=== PATIENT | female | born 1990 | race American Indian/Alaskan Native ===

== ENCOUNTER 2017-05-10 22:24 | Emergency (ER) | payer MEDICAID, OTHER ==
[2017-05-10 23:40] VITALS: BMI 32.5
[2017-05-10 23:55] LABS: SQUAMOUS EPITHIAL 7 /hpf (0-5); URINE BACTERIA RARE (<OCC); URINE BILIRUBIN NEGATIVE (NEGATIVE); URINE BLOOD SMALL (NEGATIVE); URINE CLARITY CLOUDY (Clear); URINE COLOR YELLOW (YELLOW); URINE GLUCOSE (UA) NEG (Normal); URINE LEUKOCYTE ESTERASE SMALL Leu/uL (Negative); URINE NITRATE NEGATIVE (NEGATIVE); URINE PROTEIN 30 mg/dL (NEGATIVE); URINE UROBILINOGEN 0.2-1.0 mg/dL (0.2-1.0)
[2017-05-11 04:37] VITALS: BP 113/71; PULSE 103; RESP 18; TEMP 98.8
--- NOTE | 2017-05-12 15:17 | OBHP ---
Datetime: 05/10/2017 23:43 IP Adm Impression: , intrauterine IP Admit Plan: Observation/Evaluation Admit Comment, IP Provider: 26yo edc 06/11 presents w/ c/o light vag bleeding since yesterday . states she told she was 4cm . denies srom. c/o pelvic pressure. 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 pmhx:denies shx: denies etoh,drugs or tobacco pshx: tonsillectomy obhx: [id number] medic: pnv; valtrex; benedryl prn i: vag spotting p: ua observe addendum: 1 DC home Follow-up with [facility] in 3 days Urine culture Increase water intake Pelvic Type - PN: Adequate Extremities - PN: Normal Abdomen - PN: Normal Back - PN: Normal Lungs - PN: Normal Heart - PN: Normal Neurologic - PN: Normal HEENT - PN: Normal General - PN: Normal Membranes, Provider: Intact Comments, ACOG Physical Exam: SSE: no blood in vault no genital/perineal lesions EGA AdmitDate IP: 35.3 Vital Signs Provider: Reviewed (Annotations: Data stored by CPN on behalf of user) IP Chief Complaint: Other Dilatation, Provider: 1 Effacement, Provider: 0 Station, Provider: -4 Genitourinary Exam: Normal
== END 2017-05-11 00:15 | disposition home or self-care (01) ==
LOC: H.EROB2 22:24
DX: O26.853 Spotting complicating pregnancy, third trimester (principal); O26.93 Pregnancy related conditions, unspecified, third trimester; R10.2 Pelvic and perineal pain; Z3A.35 35 weeks gestation of pregnancy

== ENCOUNTER 2017-06-04 00:23 | Emergency (ER) | payer MEDICAID ==
[2017-06-04 06:10] VITALS: BP 127/80; PULSE 101; O2SAT 99
--- NOTE | 2017-06-04 08:52 | OBHP ---
Datetime: 06/04/2017 01:09 IP Adm Impression: Term, intrauterine ; No Active Labor; Intact Membranes IP Admit Plan: Observation/Evaluation; Discharge home Admit Comment, IP Provider: 26 yo at 38.6 weeks GA based on LMP 09/04/16, c/w first trimeste r US, EDC 06/12/17 presents to [facility] w/ c/o CTX q10-12 min lasting for 30 seconds for the last 4-5 hour s. Denies LOF, VB. Reports +FM. Pt had membrace sweep done on 06/03/17 due to excessive wt gain. Report s last US done at 33 weeks GA and it was cephalic. Denies hx GDM or HTN in the previous or current pr egnancies. Denies headache, dizziness, chest pain or dyspnea. Pt is GBS neg. Pt has h/o +HSV IgG w/ n o h/o of gentila hsv. Denies any lesion during the . PNC: [facility], last visit on 06/03/17 PNL: A+, ab neg, HIV neg, rpr neg, gbs neg, ppd neg, rubella immune. gc/c neg Past obhx: X 4, ab x1 pmhx: hsv IgG +, shx: denies etoh,drugs or tobacco pshx: tonsillectomy meds: PNV, valtrex 500mg PO bid allergies: NKDA Assessment: 26 yo IUP@ 38.6 weeks GA presents for uterine CTX Plan: Continuous heart tracing bedside US shows cephalic presentation SVE: 2 cm/thick/high NST is reassuring and pt not in active labor. Pt can be safely discharge home with labor precautio n. Pt's all the questions and concers were address. Sultan Collier, PGY-1 Case d/w on-call OB Hospitalist Dr. Serrano OB Hospitalist on-call...With PGY1 I saw this patinet. chart rev'd...agree with note JUHI NDO Extremities - PN: Normal Abdomen - PN: Normal Back - PN: Normal Lungs - PN: Normal Heart - PN: Normal Neurologic - PN: Normal HEENT - PN: Normal General - PN: Normal Presentation-Admit: Vertex FHR - Baseline A Provider: 140s Membranes, Provider: Intact Comments, ACOG Physical Exam: Bedside US: cephalic presentation SVE: 2cm/thick and high. IP Hx Assessment: The History has been Reviewed and is Current EGA AdmitDate IP: 38.6 Vital Signs Provider: Reviewed IP Chief Complaint: Uterine contractions; Maternal discomfort NICHD Variability Prov Fetus A: Moderate 6-25bpm NICHD Accel Fetus A IP Provider: [id number] FHR Category Provider Fetus A: Category I NICHD Decel Fetus A IP Provider: None Dilatation, Provider: 2 Effacement, Provider: thick Station, Provider: high Genitourinary Exam: Normal
--- NOTE | 2017-06-04 08:52 | OBDCSUM ---
Datetime: 06/04/2017 01:51 Discharged to, Provider: Home Follow up at, Provider: [facility] Disch Instr Activity: Normal activity Disch Instr Diet: Regular Discharge Diagnosis, Provider: False Labor - Undelivered Discharge Time: 06/04/2017 01:51 Follow up in weeks, Provider: 06/10/2017 Disch Referrals: None Disch Activity Restrictions: No lifting; Minimize walking; Minimize stair-climbing
== END 2017-06-04 02:00 | disposition home or self-care (01) ==
LOC: H.EROB2 00:23
DX: O26.93 Pregnancy related conditions, unspecified, third trimester (principal); R10.2 Pelvic and perineal pain; Z3A.38 38 weeks gestation of pregnancy

== ENCOUNTER 2017-06-04 09:45 | Inpatient (IN) | payer MEDICAID ==
[2017-06-04 10:11] VITALS: BMI 34.5
[2017-06-04] MEDS ORDERED: Oxytocin 30 units/LR 500ML 30 U/500 ML BAG IV ONE (10:15)
[2017-06-04] MEDS ORDERED: Lactated Ringer's 1,000 ML IV SCH ×4 (10:15→10:45)
[2017-06-04 10:49] LABS: BASO % 0.2 % (0.0-2.0); EOS # 0.2 K/uL (0.0-0.7); EOS % 1.8 % (0.0-4.0); HEMOGLOBIN 10.2 g/dL (12.0-16.0); LYMPH # 1.8 K/uL (1.0-4.3); LYMPH % 16.4 % (20.0-40.0); MEAN CELL VOLUME 85.2 fl (81.0-99.0); MEAN CORPUSCULAR HEMOGLOBIN 27.8 pg (27.0-31.0); MEAN CORPUSCULAR HGB CONC 32.6 g/dL (33.0-37.0); MONO % 8.9 % (0.0-10.0); NEUT # 8.1 K/uL (1.8-7.0); NEUT % 72.7 % (50.0-75.0); RBC 3.67 Mil/uL (3.80-5.20); RED CELL DISTRIBUTION WIDTH 13.9 % (11.5-14.5); WHITE BLOOD COUNT 11.2 K/uL (4.8-10.8)
[2017-06-04] MEDS ORDERED: Lidocaine 1% Inj (20ml) ONE (12:00)
--- NOTE | 2017-06-04 12:15 | OBDS ---
DELIVERY PERSONNEL Delivery Doctor: Angie Vital MD Gas Meter Mechanic: Raine Cunha RN Resident: JIMMY Keyes MATERNAL INFORMATION Delivery Anesthesia: None Medications in Delivery: Pitocin 30 mu/500 mL, Lidocaine 1% Placenta Cultured: No Maternal Complications: None Provider Comments: Uncomplicated spontaneous vaginal delivery of a viable male infant with BW of 9Ib 14oz and scores of 9 and 9. EBL- 200mls 1cm perineal laceration repaired with 2-0 chromic with good cosmesis. LABOR SUMMARY EDC: 06/12/2017 00:00 No. Babies in Womb: 1 Attempted: No Labor Anesthesia: None LABOR INFORMATION Reason for Induction: Not Applicable Onset of Labor: 06/04/2017 09:58 Complete Dilatation: 06/04/2017 11:48 Oxytocin: N/A Group B Beta Strep: Negative Antibiotics # of Doses: 0 Antibiotics Time of Last Dose: n/a Steroids Given: None Reason Steroids Not Administered: Not Applicable MEMBRANES Membranes Rupture Method: Artificial Rupture of Membranes: 06/04/2017 11:05 Length of Rupture (hrs): 0.75 Amniotic Fluid Color: Bloody Amniotic Fluid Amount: Small Amniotic Fluid Odor: None STAGES OF LABOR Stage 1 hrs: 1 Stage 1 min: 50 Stage 2 hrs: 0 Stage 2 min: 2 Stage 3 hrs: 0 Stage 3 min: 6 Total Time in Labor hrs: 1 Total Time in Labor min: 58 VAGINAL DELIVERY Episiotomy: None Laceration Extension: First Degree Laceration Type: Perineal Laceration Repair: Yes Laceration Repair Note: 1st deegree laceration repaired with 2-0 chromic under local anesthesia with 1% lidocaine and with good cosmesis Initial Vag Sponge Count: 5 Final Vag Sponge Count: 5 Initial Vag Sharps Count: 1 Final Vag Sharps Count: 1 Sponge Count Correct: Yes Sharps Count Correct: Yes BABY A INFORMATION Delivery Date/Time: 06/04/2017 11:50 Method of Delivery: Vaginal Born in Route : No : N/A Forceps: N/A Vacuum Extraction: N/A Shoulder Dystocia : No SHOULDER DYSTOCIA BABY A Delivery Date/Time: 06/04/2017 11:50 PRESENTATION/POSITION BABY A Presentation: Cephalic Cephalic Presentation: Vertex PLACENTA INFORMATION BABY A Placenta Delivery Time : 06/04/2017 11:56 Placenta Method of Delivery: Spontaneous Placenta Status: Delivered SCORES BABY A Heart Rate 1 min: >100 bpm Resp Effort 1 min: Good Cry Reflex Irritability 1 min: Cough or Sneeze or Pulls Away Muscle Tone 1 min: Active Motion Color 1 min: [place], Extremities Blue Resuscitation Effort 1 min: N/A SCORE 1 MIN: 9 Heart Rate 5 min: >100 bpm Resp Effort 5 min: Good Cry Reflex Irritability 5 min: Cough or Sneeze or Pulls Away Muscle Tone 5 min: Active Motion Color 5 min: [place], Extremities Blue Resuscitation Effort 5 min: N/A SCORE 5 MIN: 9 INFANT INFORMATION BABY A Gestational Age at Delivery: 38.6 Gestational Status: Term Infant Outcome : Liveborn Condition : Stable Sex: Male IDENTIFICATION/MEDS BABY A ID Band Number: [id number] CORD INFORMATION BABY A No. Cord Vessels: 3 Nuchal Cord : N/A Cord Blood Taken: Yes Suction: Mouth; Nose
--- NOTE | 2017-06-04 12:17 | OBADHP ---
Datetime: 06/04/2017 10:22 Admit Comment, IP Provider: 26 y/o F at 38.6 weeks GA with a ASTON 06/12/17 by LMP 09/04/16, presents c/o uterine CTX. Pt reports CTX are painful and occurs every 3 minutes and last for mre than 30 secs. FM present. No LOF, VB. Pt had membrace sweep done on 06/03/17 due to excessive wt gain. Repo rts last US done at 33 weeks GA and it was cephalic. Pt denies headache, dizziness, chest pain or dys pnea. Pt has h/o +HSV IgG w/ no h/o of gentila hsv. Denies any active lesion during current . All systems reviewed and negative except as above. Meds: PNV, valtrex 500mg PO bid since 34 weeks GA. NKDA PNC: [facility] PNL: A+, ab neg, HIV neg, RPR neg, GBS neg, ppd neg, rubella immune. GC/Chlamydia neg OBGYN Hx: X 4, induced x1 PMHx: hsv IgG +, PSHx: tonsillectomy. SHx: denies etoh,drugs or tobacco A/P 26 y/o F with IUP at38.6 weeks GA in active labor. --Admit to L_D --Initiate labor protocol --All questions answered Case discussed with Dr Bar, OB hospitalist medical front desk coordinator Yam[employer] PGY-1. Attending Note: Pt was seen and examined with resident and I agree with the above. Pelvic Type - PN: Adequate Extremities - PN: Normal Abdomen - PN: Normal Back - PN: Normal Lungs - PN: Normal Heart - PN: Normal Thyroid - PN: Normal Neurologic - PN: Normal HEENT - PN: Normal General - PN: Normal FHR - Baseline A Provider: 145 Contraction Comments Provider: Every 4-5 minutes IP Hx Assessment: The History has been Reviewed and is Current Vital Signs Provider: Reviewed IP Chief Complaint: Uterine contractions NICHD Variability Prov Fetus A: Marked >25bpm NICHD Accel Fetus A IP Provider: [id number] FHR Category Provider Fetus A: Category I Dilatation, Provider: 5 Effacement, Provider: 60 Station, Provider: -2 Genitourinary Exam: Normal DTRs - PN: Normal EGA AdmitDate IP: 38.6 IP Adm Impression: Term, intrauterine IP Admit Plan: Admit to unit; Initiate labor protocol Datetime: 06/04/2017 01:09 Presentation-Admit: Vertex Membranes, Provider: Intact Comments, ACOG Physical Exam: Bedside US: cephalic presentation SVE: 2cm/thick and high. NICHD Decel Fetus A IP Provider: None
[2017-06-04] MEDS ORDERED: Oxycodone/Acetaminophen 5/325 mg Tab PO PRN (12:18)
[2017-06-05 08:18] LABS: HEMOGLOBIN 8.7 g/dL (12.0-16.0); MEAN CELL VOLUME 85.4 fl (81.0-99.0); MEAN CORPUSCULAR HEMOGLOBIN 27.8 pg (27.0-31.0); MEAN CORPUSCULAR HGB CONC 32.6 g/dL (33.0-37.0); RBC 3.14 Mil/uL (3.80-5.20); RED CELL DISTRIBUTION WIDTH 13.5 % (11.5-14.5); WHITE BLOOD COUNT 13.2 K/uL (4.8-10.8)
--- NOTE | 2017-06-05 08:21 | OBPPN ---
Datetime: 06/05/2017 07:46 PP Pain Prov: Within normal limits PP Nausea Prov: Denies PP Flatus Prov: Yes PP BM Prov: Yes PP Breasts Prov: Normal PP Heart Prov: Normal PP Lungs Prov: Normal PP Abdomen/Uterus Prov: Normal PP Lochia Prov: Normal PP Vulva/Perineum Prov: Normal PP CVA Tenderness Prov: Normal PP Extremities Prov: Normal PP C/S Incision Prov: Not Applicable PP Progress Prov: Not Applicable PP Impression Prov: Normal progression PP Plan Prov: Continue present management PP Progress Note Prov: S: 26 YO PPD 1, s/p NVD. Pt is seen and examined this AM. No acute ov ernight events. Pt is endorsing mild pelvic pain but pain is well controlled with pain meds. Pt is am bulating to the bathrroom without any difficulties. Bleeding has improved. Tolerating PO diet. + BM/G as. Denies chest pain, dyspnea, n/v, fever/chills, diarrhea, nausea/vomiting, and calf pain. Formula/ bottle feeding baby. Desires circumcision for infant O: VS: wnl in the last 24 hrs with Tmax of 99.1 GEN: Awake, alert and baby by bedside. NAD HEENT: EOMI, moist mucosa. LUNGS: CTA B/L, no wheezing, rhonci, or rales CVS: RRR, S1,S2 no murmurs ABD: ND, +BS, soft abdomen, firm fundus @ umbilical level. EXT: No edema, neg calf tenderness NEURO/PSYCHI: AAOx3, no grossly focal deficit, preserved affect and mood. Assessment/Plan: 26 YO [id number] to a baby boy via NVD on 06/04/17. Pt remains afebrile, patricia erating pain with medication, good PO intake and urinating without any difficulties. Doing well on PP D 1. -C/w regular diet as tolerated. -OOB with caution SCDs for DVT prophylaxis -Follow up cbc today 06/05 -C/w Percocet 5/325 mg and Ibuprofen 600 mg for pain prn -C/w Colace 100mg PO BID -Encourage and ambulating. Attending Note: Pt was seen and d/w resident and I agree with the above. Vital Signs Provider PP: Reviewed; Within Normal Limits
[2017-06-05] MEDS: Oxycodone/Acetaminophen 5/325 mg Tab PO PRN (22:11)
[2017-06-06] MEDS: Oxycodone/Acetaminophen 5/325 mg Tab PO PRN (08:21)
--- NOTE | 2017-06-06 10:55 | OBDCSUM ---
Datetime: 06/06/2017 07:01 Discharged to, Provider: Home Follow up at, Provider: Disch Instr Activity: Normal activity; May be up to bathroom; May be up for meals; May Shower Disch Instr Diet: Regular Discharge Instructions, Provider: Routine instructions given Discharge Diagnosis, Provider: Term Delivered Follow up in weeks, Provider: in 6 weeks Contraception discussed, Prov: Yes Disch Activity Restrictions: No exercising; No lifting; Minimize stair-climbing; No sexual activity; Nothing in vagina - [place], tampons, douche Discharge Comment, Provider: Discharge to home today Take iron tablets three times daily with orange juice. Take ibuprofen 600 mg 1 tab every 6 hours as needed for pain Encourage . Ambulation with caution,nothing per vaginal, no heavy lifting. If you develop any fever, chills,nausea, vomiting, redness or discharge from wound site, dizziness or weakness go to ED. Follow up at your clinic in 6 weeks for wound check. OB attending addendum Agree with above assessment and plan following modification-patient advised to take iron pills tw ice daily rather than 3 times with orange juice. Patient states she has been on iron therapy and usua lly takes it with vitamin C. Contraception after Delivery: Foam/Condoms
--- NOTE | 2017-06-06 10:55 | OBPPN ---
Datetime: 06/06/2017 06:23 PP Pain Prov: Within normal limits PP Nausea Prov: Denies PP Flatus Prov: Yes PP BM Prov: Yes PP Heart Prov: Normal PP Lungs Prov: Normal PP Abdomen/Uterus Prov: Normal PP Lochia Prov: Normal PP CVA Tenderness Prov: Normal PP Extremities Prov: Normal PP Impression Prov: Normal progression PP Plan Prov: Discharge PP Progress Note Prov: 26 yo on PPD 2, s/p NVD. Pt is seen and examined this AM. No acute o vernight events. Pt is endorsing mild pelvic pain but pain is well controlled with pain meds. Pt is a mbulating to the bathrroom without any difficulties. Bleeding has improved. Tolerating PO diet. + BM/ Gas. Denies chest pain, dyspnea, n/v, fever/chills, diarrhea, nausea/vomiting, and calf pain. Formula /bottle feeding baby. GEN: Awake, alert and baby by bedside. NAD HEENT: EOMI, moist mucosa. LUNGS: CTA B/L, no wheezing, rhonci, or rales CVS: RRR, S1,S2 no murmurs ABD: ND, +BS, soft abdomen, firm fundus @ umbilical level. EXT: No edema, neg calf tenderness NEURO/PSYCHI: AAOx3, . Assessment: 26 yo gave to a baby boy via NVD on 06/04/17. Doing well on PPD 2. Plan: Discharge to home today Ibuprofen 600 mg 1 tab po prn q6 if moderate/severe pain Feosol 325 mg PO TID Encourage . Ambulation with caution,nothing per vaginal, no heavy lifting, if excessive bleeding or fever w/o relief from pain medication go to ED. Follow up with your doctor in 6 weeks for visit. Sultan Collier, PGY-1 Case d/w on-call OB Hospitalist The attending addendum: Patient seen and examined by me. Agree with above assessment and plan following modification-patie nt advised to take iron pills twice daily rather than 3 times with orange juice. Patient states she h as been on iron therapy and usually takes it with vitamin C. Vital Signs Provider PP: Reviewed
[2017-06-06 16:29] VITALS: BP 137/88; PULSE 71; RESP 20; TEMP 97.9; O2SAT 99
== END 2017-06-06 12:10 | disposition home or self-care (01) | DRG 373 ==
LOC: H.EROB2 09:45 → H.L&D 10:08 → H.EROB2 10:16 → H.OB/GYN 13:45
PROVIDERS: ADMIT Obstetrics & Gynecology; ATTEND Obstetrics & Gynecology
PROC: 10E0XZZ Delivery of Products of Conception, External Approach (ICD-10-PCS; principal; 2017-06-04)
PROC: 0HQ9XZZ Repair Perineum Skin, External Approach (ICD-10-PCS; 2017-06-04)
PROC: 10907ZC Drainage of Amniotic Fluid, Therapeutic from Products of Conception, Via Natural or Artificial Opening (ICD-10-PCS; 2017-06-04)
PROC: 4A1HXCZ Monitoring of Products of Conception, Cardiac Rate, External Approach (ICD-10-PCS; 2017-06-04)
DX: O26.03 Excessive weight gain in pregnancy, third trimester (principal); O70.0 First degree perineal laceration during delivery; Z37.0 Single live birth; Z3A.38 38 weeks gestation of pregnancy; Z86.19 Personal history of other infectious and parasitic diseases